=== PATIENT | female | born 1950 | race Caucasian/White ===

== ENCOUNTER 2018-05-11 08:52 | Emergency (ER) | payer BC, MEDICARE, OTHER ==
[2018-05-11] MEDS ORDERED: SODIUM CHLORIDE 0.9% 1,000 ML IV ONE ×2 (09:10→11:24)
[2018-05-11] MEDS ORDERED: ONDANSETRON 4 MG/2 ML VIAL IVP STA (09:10)
--- NOTE | 2018-05-11 09:18 | ED Physician Documentation ---
PD HPI ABD PAIN - Stated complaint Stated Complaint: ABD PX - Chief complaint Chief Complaint: Abd Pain - History obtained from History obtained from: Patient, Family (Spouse) - History of Present Illness Timing - onset: How many days ago (6) Timing - duration: Days (6) Timing - details: Intermittant Quality: Pain Location: LLQ Associated symptoms: Fever, Nausea, Constipation. No: Vomiting, Diarrhea Similar symptoms before: Diagnosis (History of similar symptoms in the past with diverticulitis.) - Treatment prior to arrival Treatment prior to arrival: She started Cipro five days ago. - Additional information Additional information: The patient is a 67-year-old female who presents with left lower quadrant abdominal pain that started 6 days ago and has persisted since that time. She reports associated fever and nausea, without vomiting. She denies diarrhea or dysuria. She has not had a bowel movement for the past 6 days. Initially she thought her symptoms were caused by constipation, so she took MiraLAX 6 days ago and again 5 days ago, without results. She has a history of diverticulitis, so started Cipro 5 days ago. 3 weeks ago she had diarrhea, and her primary physician had her treat with Cipro for suspected diverticulitis at that time. Her symptoms resolved, and she was in her normal state of health for 1 week, until her abdominal pain started 6 days ago. Her past medical history is also significant for partial small bowel resections, surgery for internal hernia repair, status post hysterectomy, and history of adhesions. Currently she and her are traveling in an RV. Review of Systems Constitutional: reports: Fever Nose: denies: Congestion Throat: denies: Sore throat Cardiac: denies: Chest pain / pressure Respiratory: denies: Dyspnea, Cough GI: reports: Abdominal Pain, Nausea, Constipation. denies: Vomiting : denies: Dysuria Skin: denies: Rash Musculoskeletal: denies: Back pain Neurologic: denies: Headache PD PAST MEDICAL HISTORY - Past Medical History Past Medical History: Yes Cardiovascular: None Respiratory: None Neuro: None Endocrine/Autoimmune: None GI: Diverticulitis HEENT: Chronic sinusitis - Past Surgical History Past Surgical History: Yes General: Bowel surgery /[employer] SERVICE: Hysterectomy - Present Medications Home Medications: Ambulatory Orders Medication Instructions Recorded Confirmed Ciprofloxacin HCl [Cipro] 05/11/18 Ciprofloxacin HCl [Cipro] 500 mg PO BID #14 tablet 05/11/18 HYDROcod/ACETAM 5/325 [Vicodin 1 ea PO Q6H PRN #15 tablet 05/11/18 5/325] Metronidazole 500 mg PO BID #14 tablet 05/11/18 Promethazine [Phenergan] 25 - 50 mg PO Q6H PRN #10 tab 05/11/18 - Allergies Allergies/Adverse Reactions: Allergies Allergy/AdvReac Type Severity Reaction Status Date / Time No Known Drug Allergies Allergy Verified 05/11/18 09:03 - Living Situation Living Situation: reports: With spouse/s.o. - Social History Does the pt smoke?: No Smoking Status: Former smoker Additional Social History: Currently traveling in an . PD ED PE NORMAL - Vitals Vital signs reviewed: Yes (Hypertensive.) - General General: Alert and oriented X 3, Well developed/nourished - HEENT HEENT: Atraumatic, Moist mucous membranes, Pharynx benign - Neck Neck: No adenopathy, No JVD - Cardiac Cardiac: RRR, No murmur - Respiratory Respiratory: No respiratory distress, Clear bilaterally - Abdomen Abdomen: Normal bowel sounds, Soft, Other (Tender to palpation in the left lower quadrant, without rebound tenderness.) - Back Back: No CVA TTP - Derm Derm: No rash - Extremities Extremities: No edema, No calf tenderness / cord - Neuro Neuro: Alert and oriented X 3, No motor deficit, Normal speech Results - Vitals Vitals: Vital Signs - 24 hr 05/11/18 05/11/18 05/11/18 08:57 10:18 14:32 Temperature 37.6 C H 36 C L Heart Rate 101 H 86 93 Respiratory 18 16 18 Rate Blood Pressure 183/96 H 157/89 H 156/87 H O2 Saturation 96 96 97 Oxygen O2 Source Room air - Labs Labs: Laboratory Tests 05/11/18 05/11/18 05/11/18 09:15 09:20 09:20 WBC 14.9 H RBC 4.45 Hgb 14.4 Hct 42.9 MCV 96.4 MCH 32.4 H MCHC 33.7 RDW 12.4 Plt Count 414 MPV 7.7 L Neut # (Auto) 11.1 H Lymph # (Auto) 1.8 Delta # (Auto) 1.9 H Eos # (Auto) 0.0 Baso # (Auto) 0.1 Absolute Nucleated RBC 0.01 Nucleated RBC % 0.0 Manual Slide Review Indicated WBC Morphology NORMAL APPEARANCE Platelet Estimate NORMAL (130-450,000) Platelet Morphology RARE GIANT PLATELETS RBC Morph Micro Appear NORMAL APPEARANCE Sodium 135 Potassium 3.7 Chloride 101 Carbon Dioxide 24 Anion Gap 10.0 BUN 7 Creatinine 0.7 Estimated GFR (MDRD) 84 L Glucose 127 H Calcium 9.2 Total Bilirubin 0.7 AST 20 ALT 18 Alkaline Phosphatase 100 Total Protein 8.0 Albumin 3.7 Globulin 4.3 H Albumin/Globulin Ratio 0.9 L Lipase 42 Urine Color YELLOW Urine Clarity CLEAR Urine pH 7.0 Ur Specific Beatrice 1.010 Urine Protein NEGATIVE Urine Glucose (UA) NEGATIVE Urine Ketones NEGATIVE Urine Occult Blood SMALL H Urine Nitrite NEGATIVE Urine Bilirubin NEGATIVE Urine Urobilinogen 0.2 (NORMAL) Ur Leukocyte Esterase NEGATIVE Urine RBC 0-5 Urine WBC 0-3 Ur Squamous Epith Cells RARE Squamous Urine Bacteria Rare Ur Microscopic Review INDICATED Urine Culture Comments NOT INDICATED - Rads (name of study) CT abd/pelvis Radiology: Prelim report reviewed, EMP read contemporaneously, See rad report (1 )Moderate to large volume of stool in the colon, largely within the sigmoid colon with colonic wall thickening and pericolonic edema along 1 and possibly 2 diverticula, which tapers to the lower sigmoid colon, which is nondistended and mildly thickened and possibly narrowed at this segment due to lack of distention stenosis, although a colonic lesion cannot be completely excluded. Findings involving the sigmoid colon may represent diverticulitis. Focal inflammatory/colitis also consideration. No evidence for pericolonic abscess or free air. 2) No small bowel obstruction. Postsurgical changes in the right lower quadrant with ileocolonic anastomosis.) PD MEDICAL DECISION MAKING - ED course Complexity details: reviewed results, re-evaluated patient, considered differential, d/w patient, d/w family ED course: The patient's abdominal pain is most likely due to peristaltic waves caused by constipation, and exacerbated by diverticulitis. Her white count is elevated at 14.9. CT scan of her abdomen and pelvis reveals a moderate to large volume stool mostly within the sigmoid colon, and also reveals evidence suggestive of diverticulitis, without abscess or perforation. Treatment in the emergency department included administration of normal saline IV, Zofran 4 mg IV, fentanyl 50 g IV 2, a triple H enema, and MiraLAX 17 g orally. The patient's symptoms markedly improved with the above treatment. She had small results from the enema, but her pain completely subsided, and on reexamination her abdomen is benign. She is being discharged with prescriptions for metronidazole, Cipro, Phenergan, and Vicodin, 15 tablets. I discussed with her and her the diagnosis and expected course of illness, antibiotic and symptomatic treatment, as well as potentially worrisome signs or symptoms that should prompt reevaluation in the emergency department. - Sepsis Event Vital Signs: Vital Signs - 24 hr 05/11/18 05/11/18 05/11/18 08:57 10:18 14:32 Temperature 37.6 C H 36 C L Heart Rate 101 H 86 93 Respiratory 18 16 18 Rate Blood Pressure 183/96 H 157/89 H 156/87 H O2 Saturation 96 96 97 Oxygen O2 Source Room air Departure - Departure Disposition: 01 Home, Self Care Clinical Impression: Diverticulitis of gastrointestinal tract Constipation Qualifiers: Constipation type: unspecified constipation type Qualified Code(s): K59.00 - Constipation, unspecified Condition: Stable Instructions: ED Constipation, ED Diverticulitis Prescriptions: Ciprofloxacin HCl [Cipro] 500 mg PO BID #14 tablet HYDROcod/ACETAM 5/325 [Vicodin 5/325] 1 ea PO Q6H PRN #15 tablet PRN Reason: Pain Metronidazole 500 mg PO BID #14 tablet Promethazine [Phenergan] 25 - 50 mg PO Q6H PRN #10 tab PRN Reason: Nausea / Vomiting Comments: Drink plenty of fluids. Eat fruits such as peaches, prunes, apricots, raisins. Take metronidazole and Cipro twice daily as prescribed. You can use Vicodin as prescribed as needed for pain. You can use Phenergan as prescribed as needed for nausea. Continue using MiraLAX to help promote bowel motility. Return to the emergency department if you develop increasing abdominal pain, persistent vomiting, fever with shaking chills, or otherwise worsening symptoms. Discharge Date/Time: 05/11/18 14:47
[2018-05-11 09:30] LABS: BILIRUBIN,URINE NEGATIVE (NEGATIVE); GLUCOSE, URINE (UA) NEGATIVE (NEGATIVE); KETONES,URINE (UA) NEGATIVE (NEGATIVE); LEUKOCYTE ESTERASE, URINE NEGATIVE (NEGATIVE); NITRITE,URINE NEGATIVE (NEGATIVE); OCCULT BLOOD,URINE SMALL (NEGATIVE); PROTEIN,URINE NEGATIVE (NEGATIVE); UROBILINOGEN,URINE 0.2 (NORMAL) E.U./dL (NORMAL)
[2018-05-11 09:31] LABS: CLARITY,URINE CLEAR (CLEAR)
[2018-05-11] MEDS ORDERED: fentaNYL 100 MCG/2 ML VIAL IVP STA ×2 (09:31→11:20)
[2018-05-11 09:34] LABS: BASOPHILS # (AUTO) 0.1 10^3/uL (0.0-0.1); BASOPHILS % (AUTO) 0.6 %; EOSINOPHILS % (AUTO) 0.1 %; HGB - HEMOGLOBIN 14.4 g/dL (12.0-16.0); LYMPHOCYTES # (AUTO) 1.8 10^3/uL (1.5-3.5); LYMPHOCYTES % (AUTO) 12.3 %; MEAN CORPUSCULAR HEMOGLOBIN 32.4 pg (27.0-31.0); MEAN CORPUSCULAR HGB CONC 33.7 g/dL (32.0-36.0); MEAN CORPUSCULAR VOLUME 96.4 fL (81.0-99.0); MEAN PLATELET VOLUME 7.7 fL (7.9-10.8); MONOCYTES # (AUTO) 1.9 10^3/uL (0.0-1.0); MONOCYTES % (AUTO) 12.6 %; NEUTROPHILS # (AUTO) 11.1 10^3/uL (1.5-6.6); NEUTROPHILS % (AUTO) 74.4 %; PLT - PLATELET COUNT 414 10^3/uL (130-450); RED BLOOD COUNT 4.45 10^6/uL (4.20-5.40); RED CELL DISTRIBUTION WIDTH 12.4 % (12.0-15.0); WHITE BLOOD COUNT 14.9 x10^3/uL (4.8-10.8)
[2018-05-11 09:37] LABS: BACTERIA,URINE Rare /HPF (None Seen); RBC,URINE 0-5 /HPF (0-5); SQUAMOUS EPITHELIAL CELL,UR RARE Squamous (<= Few)
[2018-05-11 09:42] LABS: ALBUMIN 3.7 g/dL (3.2-5.5); ALBUMIN/GLOBULIN RATIO 0.9 (1.0-2.2); BILIRUBIN,TOTAL 0.7 mg/dL (0.2-1.0); CALCIUM 9.2 mg/dL (8.5-10.3); CREATININE 0.7 mg/dL (0.4-1.0)
[2018-05-11] MEDS ORDERED: IOPAMIDOL-300 100 ML VIAL ONE (09:51)
[2018-05-11] MEDS ORDERED: IOPAMIDOL-300 100 ML VIAL IVP ONE (09:55)
[2018-05-11 10:07] LABS: PLATELET ESTIMATE, MANUAL NORMAL (130-450,000) (NORMAL); PLATELET MORPHOLOGY RARE GIANT PLATELETS (NORMAL)
[2018-05-11 10:08] LABS: RBC MORPHOLOGY (MULTIPLE) NORMAL APPEARANCE (NORMAL)
--- NOTE | 2018-05-11 11:00 | CT Report ---
Procedure Date: 05/11/2018 Accession Number: [id number] / [id number] Procedure: CT - Abdomen/Pelvis W/ CPT Code: FULL RESULT: EXAM: CT ABDOMEN AND PELVIS EXAM DATE: 05/11/2018 10:03 AM. CLINICAL HISTORY: LLQ abdominal pain. COMPARISONS: None. TECHNIQUE: Routine helical CT imaging was performed through the abdomen and pelvis. IV contrast: 100 cc of Isovue-300. Enteric contrast: No. Reconstructions: Coronal and sagittal. In accordance with CT protocol optimization, one or more of the following dose reduction techniques were utilized for this exam: automated exposure control, adjustment of mA and/or KV based on patient size, or use of iterative reconstructive technique. FINDINGS: Lung Bases: Minimal basilar scar/atelectasis. Included portions of the heart are unremarkable. Liver: Normal. No masses. Gallbladder/Bile Ducts: Moderate gallbladder distention. No pericholecystic edema. No biliary ductal dilatation. Spleen: Normal. Pancreas: Diffuse fatty replacement of the pancreas. No peripancreatic edema. No pancreatic ductal dilatation. Adrenal Glands: Normal. Kidneys: Normal. No masses or hydronephrosis. Peritoneal Cavity/Bowel: Stomach is minimally distended and unremarkable. No bowel obstruction or significant bowel dilatation is identified. No intra-abdominal fluid collections. Postsurgical changes are seen in the right lower quadrant, ileocolonic anastomosis. Moderate to large volume of stool his seen in the colon largely in the distal colon in particular the sigmoid colon with the lower sigmoid colon distal to the stool decompressed and thickened. There is thickening and pericolonic inflammatory changes involving the sigmoid colon and may be sending a least one and possibly 2 diverticula. No evidence of pericolonic abscess or free air. Appendix is not visualized. Pelvic Organs: Urinary bladder is mild moderately distended and unremarkable. Adjacent inflammatory changes are seen in the pelvis. Small volume of pelvic free fluid. No pelvic adenopathy. Uterus is absent. Vasculature: Vascular calcifications. No aneurysm. Bones: Mild degenerative changes of lower thoracic and lumbar spine. Grade 1 anterolisthesis of L5 on S1 due to L5 pars interarticularis defects. Lumbar facet arthropathy. Degenerative changes of both hip joints. Other: Atrophy and fatty replacement of some right lateral pelvic musculature. IMPRESSION: 1. Moderate to large volume of stool in the colon largely within the sigmoid colon with colonic wall thickening and pericolonic edema along one and possibly 2 diverticula which tapers to the lower sigmoid colon which is nondistended and mildly thickened and possibly narrowed at this segment due to, lack of distention, stenosis although a colonic lesion cannot be completely excluded. Findings involving the sigmoid colon may represent diverticulitis. Focal inflammatory/colitis also consideration. No evidence for pericolonic abscess or free air. 2. No small bowel obstruction. Post surgical changes in the right lower quadrant with an ileocolonic anastomosis. 3. No nephrolithiasis. No hydronephrosis. [facility]
[2018-05-11] MEDS ORDERED: POLYETHYLENE GLYCOL 3350 238 GM BOTTLE PO ONE (13:49)
[2018-05-11] MEDS ORDERED: POLYETHYLENE GLYCOL 3350 17 GM PACKET PO STA (14:12)
[2018-05-11 14:33] VITALS: BP 156/87
== END 2018-05-11 14:47 | disposition home or self-care (01) ==
LOC: ED 08:52
DX: K57.92 Diverticulitis of intestine, part unspecified, without perforation or abscess without bleeding (principal); K59.00 Constipation, unspecified
CPT/HCPCS: 36415; 74177; 80053; 81001; 83690; 85025; 96361; 96374; 96375; 96376; 99284; A9270; Q9967; 81003; 87086